=== PATIENT | female | born 1985 | race African-American/Black ===

== ENCOUNTER 2016-09-29 13:16 | Emergency (ER) | payer MEDICAID ==
[~2016-09-29] VITALS: Ht 167.6 cm; Wt 120.0 kg
[2016-09-29 14:56] LABS: HCG SCREEN NEGATIVE; INR 1.1; PROTHROMBIN TIME 11.1 sec
[2016-09-29 14:59] LABS: ALBUMIN 3.3 g/dL (3.4-5.0); ANION GAP 11; CALCIUM 9.4 mg/dL (8.5-10.1); CARBON DIOXIDE 26 mEq/L (21-32); CHLORIDE 106 mEq/L (98-107); INDEX HEMOLYSI 1 (1-3); INDEX ICTERIC 1 (1-4); INDEX LIPEMIC 1 (1-3); UREA NITROGEN BLOOD 10 mg/dL (7-21)
[2016-09-29 15:04] LABS: ALANINE AMINOTRANSFERASE 20 IU/L (13-61); T4 FREE 1.01 ng/dL (0.76-1.46); eGFR > 60 mL/min (>60)
[2016-09-29 15:05] LABS: BASOPHILS % 0.3 % (0.0-2.0); DIFFERENTIAL COMMENT 0; EOSINOPHILS % 0.6 % (0.0-5.0); HEMATOCRIT. 34.7 % (36.0-48.0); HEMOGLOBIN. 11.6 g/dL (12.0-16.0); LYMPHOCYTES % 28.5 % (20.0-50.0); MEAN CORPUSCULAR HGB CONC 33.6 g/dL (31.0-37.0); MEAN CORPUSCULAR VOLUME 74.3 fL (81.0-99.0); MEAN PLATELET VOLUME 8.9 fl (7.4-10.4); MONOCYTES % 8.9 % (2.0-8.0); NEUTROPHILS % 61.7 % (40.0-76.0); NT PRO B-TYPE NATRIURETIC PEP 33 pg/mL (5-125); PLATELET 279 x1000/uL (130-400); RED BLOOD CELL COUNT 4.66 mill/uL (4.2-5.4); RED CELL DISTRIBUTION WIDTH 17.9 % (11.6-14.6); TROPONIN I < 0.02 ng/mL (0.00-0.04); WHITE BLOOD COUNT 8.7 x1000/uL (4.5-11.0)
[2016-09-29 16:42] VITALS: BP 115/74
== END 2016-09-29 16:40 | disposition home or self-care (01) ==
LOC: ER 14:05
DX: R00.2 Palpitations (principal); F41.9 Anxiety disorder, unspecified; J44.9 Chronic obstructive pulmonary disease, unspecified; Z87.891 Personal history of nicotine dependence
CPT/HCPCS: 36415; 71010; 80053; 83735; 83880; 84439; 84443; 84484; 84703; 85025; 85610; 93005; 99285; Z7610

== ENCOUNTER 2016-12-10 17:14 | Emergency (ER) | payer MEDICAID ==
[~2016-12-10] VITALS: Ht 165.1 cm; Wt 144.0 kg
[2016-12-10] MEDS ORDERED: PREN-88 PO (17:47)
[2016-12-10 18:47] LABS: BASOPHILS % 0.5 % (0.0-2.0); EOSINOPHILS % 1.2 % (0.0-5.0); HEMATOCRIT. 32.9 % (36.0-48.0); HEMOGLOBIN. 11.4 g/dL (12.0-16.0); LYMPHOCYTES % 27.4 % (20.0-50.0); MEAN CORPUSCULAR HEMOGLOBIN 25.9 pg (28.0-32.0); MEAN CORPUSCULAR VOLUME 74.7 fL (81.0-99.0); MEAN PLATELET VOLUME 8.7 fl (7.4-10.4); MONOCYTES % 8.5 % (2.0-8.0); NEUTROPHILS % 62.4 % (40.0-76.0); PLATELET 243 x1000/uL (130-400); RED BLOOD CELL COUNT 4.41 mill/uL (4.2-5.4); RED CELL DISTRIBUTION WIDTH 16.4 % (11.6-14.6)
[2016-12-10 18:55] LABS: CARBON DIOXIDE 24 mEq/L (21-32); CHLORIDE 105 mEq/L (98-107)
[2016-12-10] MEDS ORDERED: SODIUM CHLORIDE 0.9% 500 ML IV ONE (19:00)
[2016-12-10 19:01] LABS: B-HCG QUANTITATIVE 48660 mIU/mL (<3)
[2016-12-10 19:25] LABS: CLARITY URINE CLOUDY (CLEAR); COLOR URINE YELLOW (YELLOW); GLUCOSE URINE NEGATIVE (NEGATIVE); KETONES URINE NEGATIVE (NEGATIVE); LEUKOCYTE ESTERASE URINE 2+ (NEGATIVE); NITRITE URINE NEGATIVE (NEGATIVE); OCCULT BLOOD URINE NEGATIVE (NEGATIVE); PH URINE 6.5 (4.5-8.0); PROTEIN URINE NEGATIVE (NEGATIVE); SPECIFIC GRAVITY URINE 1.011 (1.005-1.030)
[2016-12-10] MEDS ORDERED: ACETAMINOPHEN 500MG TABLET PO ONE (21:00)
[2016-12-10 21:53] VITALS: BP 111/75
== END 2016-12-10 21:54 | disposition home or self-care (01) ==
LOC: ER 17:22
DX: O23.41 Unspecified infection of urinary tract in pregnancy, first trimester (principal); Z3A.12 12 weeks gestation of pregnancy; O12.01 Gestational edema, first trimester
CPT/HCPCS: 36415; 80048; 81001; 81025; 83690; 84702; 85025; 87077; 87086; 87186; 96360; 99284; J7030; J7040; Z7610

== ENCOUNTER 2018-06-28 00:46 | Emergency (ER) | payer SELFPAY ==
[~2018-06-28] VITALS: Ht 172.7 cm; Wt 145.0 kg
[~2018-06-28 00:46] MED LIST: ALBUTEROL SULFATE; CALC-1059 PO; FERR-63 PO; FOLI-43 PO; PREN-88 PO
[2018-06-28 05:45] VITALS: BP 144/72
== END 2018-06-28 05:48 | disposition home or self-care (01) ==
LOC: ER 00:46
DX: M79.661 Pain in right lower leg (principal); J45.909 Unspecified asthma, uncomplicated; W01.0XXA Fall on same level from slipping, tripping and stumbling without subsequent striking against object, initial encounter; Y93.89 Activity, other specified; Y92.9 Unspecified place or not applicable
CPT/HCPCS: 73590; 99283